=== PATIENT | male | born 1995 | race Caucasian/White ===

== ENCOUNTER 2021-11-20 16:15 | Emergency (ER) | payer SELFPAY ==
[2021-11-20 16:36] VITALS: BP 136/83; PULSE 53; RESP 15; TEMP 36.5; O2SAT 100; BMI 21.7
--- NOTE | 2021-11-20 16:59 | XRR_ITS ---
PROCEDURE INFORMATION: Exam: XR Right Hand Exam date and time: 11/20/2021 5:23 PM Age: 25 years old Clinical indication: Injury or trauma; Other: Smashed; Amputation, traumatic; Right ring finger and right little finger TECHNIQUE: Imaging protocol: Radiologic exam of the Right hand. Views: 3 or more views. COMPARISON: No relevant prior studies available. FINDINGS: Bones/joints: 4th distal phalangeal tuft minimal traumatic amputation with soft tissue injury. Soft tissues: See Bones/joints finding. XR/XR hand RT min 3V* [id number] IMPRESSION: 4th distal phalangeal tuft minimal traumatic amputation with soft tissue injury.
[2021-11-20 17:44] VITALS: BP 136/83; PULSE 53; RESP 15; TEMP 36.5; O2SAT 100
--- NOTE | 2021-11-20 17:57 | W.ED.UPPEXIN ---
HPI - Extremity Injury (Upper) General: Chief Complaint: Extremity Injury, Upper Stated Complaint: Right hand injury Time Seen by Provider: 11/20/21 17:29 Source: patient Mode of arrival: ambulatory Limitations: no limitations History of Present Illness: Patient is a 25-year-old male who presents to ED today for evaluation of right fourth and fifth digit injuries. Patient states while at work earlier today he got the digits trapped/crushed between a piece of wood and a piece of metal. He is reporting distal tip amputations. Last tetanus was unknown. He states this is not Worker's Comp. complaint: injury to: finger Onset (ago): hour(s) Other Extremity Injury: Right: fingers Other injuries: none Place: work Severity: severe Relieving factors: none Exacerbating factors: none Context: direct blow and crush Associated symptoms: Reports no associated symptoms Treatments prior to arrival: bandage Review of Systems Musc: Reports: extremity pain; Denies: joint pain or joint swelling Skin/Breast: Reports: other (distal tip amputations) Neuro: Denies: numbness in extremities or sensory changes Physical Exam Const: COMMON NORMALS: no acute distress, average body habitus, patient oriented x3, no limitations, healthy appearing, alert and well nourished Extremity: GENERAL: Yes normal exam except as noted RIGHT UPPER EXTREMITY: Yes hand & digits OTHER: pt has complete avulsion of palmar pad of R 5th finger; no bony involvement noted; no nail involvement; bleeding controlled pt has avulsion/partial distal tip amputation of palmar distal R 4th finger; he does have amputated portion with him and there is a small piece of retained bone in amputated portion; his nail plate has avulsed from his nail bed but is intact with no damage to nailfold Neuro: COMMON NORMALS: patient oriented x3, moves all extremities, no focal motor deficits and no sensory deficits noted SENSORIUM/ORIENTATION: Yes alert Skin: NARRATIVE SKIN EXAM: see extremity for pertinent skin findings Procedures Laceration Laceration 1: Site: hand (4th finger) Side (If applicable): right Size (cm): 2.0 Description: irregular Depth: [id number] (distal tip amputation) Local Anesthetic: lidocaine 2% (digital block) Amount of anesthesia used (mL): 3.0 Pre-repair: wound explored and irrigated extensively Skin layer closed with: nylon and vicryl Size (cm): 4-0 and 5-0 Number of sutures: 10 Technique: simple, interrupted Course Vital Signs: Vital signs: Vital Signs Temperature 97.7 F 11/20/21 17:44 Pulse Rate 53 L 11/20/21 17:44 Respiratory Rate 20 H 11/20/21 18:07 Blood Pressure 136/83 11/20/21 17:44 Pulse Oximetry 100 11/20/21 17:44 Oxygen Delivery Me thod 11/20/21 17:44 MDM - Extremity Injury (Upper) Medical Decision Making Patient has a right fourth finger distal tip/tuft fracture amputation. Amputated portion was de-boned and does appear to have potential for viability so was sutured back at patient request. We did discuss the possibility that this would eventually not be viable. Patient was given IM Ancef here. Tetanus updated. We will have him follow-up with orthopedics. Return ED precautions given. His right 5th finger will have to heal by secondary intent. Lab Data Radiology Impressions Hand X-Ray 11/20/21 16:59 IMPRESSION: 4th distal phalangeal tuft minimal traumatic amputation with soft tissue injury. Discharge Plan Discharge Patient Disposition: Home Clinical Impression: Open fracture of tuft of distal phalanx of finger Partial traumatic amputation of right ring finger through phalanx Qualifiers: Encounter type: initial encounter Qualified Code(s): S68.624A - Partial traumatic transphalangeal amputation of right ring finger, initial encounter Condition: Stable Prescriptions: New hydrocodone-acetaminophen 5-325 mg tablet 1 tab PO Q6H PRN (Reason: pain) Qty: 14 0RF cephalexin 500 mg capsule 500 mg PO Q6H 7 Days Qty: 28 0RF Discharge Orders: Discharge ED (Routine); Ordered 11/20/21 Ordered By: Sarah Ramírez Patient Instructions: Opioid Safety Activity Restrictions/Additional Instructions: Keep wounds clean with warm soapy water several times daily. Pat dry. Pinky finger needs to be dressed with a wet-to-dry dressing. Call your antibiotics and start these immediately. Case management should contact you shortly to set you up with your follow-up orthopedic appointment. Monitor for signs of infection such as redness, swelling, drainage, increased pain, red streaking up your hand or arm, fevers, or any other concerns you may have. Coding Level of Care Code ED Nuclear Test Technician for Chg Fwd Exam Expanded Problem Focused
[2021-11-20 18:07] VITALS: RESP 20
[2021-11-20] MEDS: ondansetron 2 mg/ML SDV 2 mL 4 MG IM (18:07)
[2021-11-20] MEDS: morphine 4 mg/mL SDV 1 mL IM (18:07)
[2021-11-20] MEDS: tetanus-dipt-pertussis 0.5 mL SDV IM (18:08)
[2021-11-20] MEDS: HYDROcodone-acetaminophen 5-325 mg Tablet 2 TAB PO (19:04)
[2021-11-20] MEDS: ceFAZolin 1,000 mg SDV 1000 MG IM (19:04)
[2021-11-20] MEDS: neomycin-poly-bacitracin oint 0.9 gm Pkt 1 APPLIC TOPICAL (19:05)
--- NOTE | 2021-11-21 10:23 | DCPLANNER ---
germination testing manager had message to schedule a follow up appointment for patient with ortho. germination testing manager sent patients information to the front office staff at ortho. Patients information will be printed and reviewed. Clinic will call patient with appointment information.
--- NOTE | 2021-11-22 14:22 | DCPLANNER ---
grievance manager received the following message from the ortho clinic regarding patient referral: Attempted to reach the patient using both numbers. The grandmother answered and stated she would try to get ahold of him. We would like him to come in and see MARGARITA abernathy
== END 2021-11-20 19:23 | disposition home or self-care (01) ==
PROVIDERS: Emergency Provider Physician Assistant
DX: S68.624A Partial traumatic transphalangeal amputation of right ring finger, initial encounter (principal); W23.0XXA Caught, crushed, jammed, or pinched between moving objects, initial encounter; Z23 Encounter for immunization
CPT/HCPCS: 12001; 73130; 90715; 96372; 99284; J0690; J2270; J2405